=== PATIENT | female | born 1960 | race Caucasian/White ===

== ENCOUNTER 2018-02-02 16:55 | Observation (INO) ==
[2018-02-02] MEDS ORDERED: ONDANSETRON 4 MG TAB.RAPDIS PO ONE (17:03)
[2018-02-02] MEDS ORDERED: ONDANSETRON 4 MG TAB.RAPDIS ONE (17:13)
[2018-02-02] MEDS ORDERED: DICYCLOMINE HCL 10 MG/ML AMPUL IM ONE ×2 (17:17→17:23)
[2018-02-02 17:20] LABS: Hematocrit 45.7 % (37.0-47.0); Hemoglobin 15.3 gm/dL (12.5-16.0); Mean Cell Volume 97.9 fl (78-100); Mean Corpuscular Hemoglobin 32.8 pg (27-31); Mean Corpuscular Hgb Conc 33.5 g/dl (32-36); Mean Platelet Volume 9.5 fl (8-12.5); Neutrophil # 11.1 K/mm3 (1.3-6.0); Neutrophil % 80.6 % (42-75.0); Platelet Count 284 K/mm3 (150-450); Red Blood Count 4.67 M/mm3 (4.2-5.4); Red Cell Distribution Width 14.2 % (11.5-14.0); White Blood Count 13.8 K/mm3 (4.0-10.5)
[2018-02-02 17:23] LABS: Urine Bilirubin 1 mg/dl (NEGATIVE); Urine Ketone Negative (NEGATIVE); Urine Nitrite Negative (NEGATIVE); Urine Protein 30 mg/dL (NEGATIVE); Urine Urobilinogen Normal (NORMAL)
--- NOTE | 2018-02-02 17:23 | ERNOTE ---
Abdominal HPI - Narrative Date of Service: 02/02/18 - General Chief Complaint: Abdominal Pain Time Seen by Provider: 02/02/18 17:03 Source: patient Exam Limitations: no limitations - Immun/Allergies/Home Medications Immunizatons: IMMUNIZATION HX Immunizations Up to Date Yes History of Influenza Vaccine Yes Hx Pneumococcal Vaccination No Allergies/Adverse Reactions: Allergies Penicillins Allergy (Mild, Verified 02/02/18 17:02) Hives amoxicillin Adverse Reaction (Verified 02/02/18 17:02) rash Home Medications: HOME MEDICATIONS Folic Acid 1 mg PO DAILY 10/07/15 [Last Taken 10/25/15 07:30] Metoprolol Tartrate [Lopressor] 50 mg PO BID 10/07/15 [Last Taken 10/26/15 07:00 ] Multivitamins [Multivitamin Nathalia] 1 cap PO DAILY 10/07/15 [Last Taken 07:30] Ranitidine HCl [Zantac 75] 150 mg PO DAILY 10/07/15 [Last Taken 10/25/15 07:30] Aspirin [Aspirin EC] 325 mg PO DAILY 12/19/17 [Last Taken Unknown] Methotrexate Sodium [Methotrexate] 15 mg PO ONCE 12/19/17 [Last Taken Unknown] - History of Present Illness Narrative: Pt. comes in by PV with C/O R upper and lower quadrant abdominal pain for three days. Pt. states that the pain does not move, is constant and is accompanied by NVD. Pt. states that the was able to tolerate cereal this morning without difficulty. Pt. denies any CP, SOB, dysuria, back pain, fevers, alleviating factors or prehospital treatment. Pt. does state that movement, deep breathing , and ambulating make the symptoms worse. Timing: getting worse Quality: moderate, sharpness Activities at Onset: none Modifying Factors - (Improves): Present: other - nothing Modifying Factors - (Worsens): Present: breathing, movement Associated Symptoms: Present: diarrhea-mucous, nausea, vomiting. Absent: chest pain, neck pain, diarrhea-gross blood, fatigue, heartburn, loss of appetite, shortness of breath, swelling/mass in abdomen, weakness Prior Abdominal Problems: Present: none Prior Treatment: Absent: recently seen, treated by physician, recently hospitalized, currently on antibiotics Review of Systems - Review of Systems Constitutional: Present: no symptoms reported. Absent: fever, chills, weakness , fatigue, malaise EYE: Present: no symptoms reported ENT: Present: no symptoms reported Respiratory: Present: no symptoms reported. Absent: shortness of breath, cough , wheezing Cardiology: Present: no symptoms reported. Absent: chest pain, palpitations, edema Gastrointestinal/Abdominal: Present: nausea, vomiting, diarrhea, abdominal pain - RUQ, RLQ Genitourinary: Present: no symptoms reported. Absent: frequency, decreased urinary output Musculoskeletal: Present: no symptoms reported. Absent: back pain, neck pain, joint pain Skin: Present: no symptoms reported. Absent: rash, change in color Neurological: Present: no symptoms reported. Absent: headache, dizziness/light- headedness, numbness, tingling Endocrine: Present: no symptoms reported All Other Systems: All systems neg except as marked - Patient's Past Medical History Patient History - Medical: No pertinent hx Patient History - Cardiac/Respiratory: Hypertension Patient History - Cancer: No Hx of Cancer Patient History - Surgical Procedures: Cholecystectomy, Hysterectomy, Total Knee Replacement, T & A, Urology Patient History - Other: None - Family History Father Family History - Medical: , Renal Failure Family History - Cardiac/Respiratory: Coronary Heart Disease, Hypertension, Myocardial Infarction Mother Family History - Medical: , Diabetes Type 2 Family History - Cardiac/Respiratory: Coronary Heart Disease, CVA/Stroke - Social History Living Situations: home Abuse History: No History of abuse Psych History: No pertinent hx - Immunizations Immunizations Up to Date: Yes Hx Pneumococcal Vaccination: No History of Influenza Vaccine: Yes Physical Exam - Physical Exam General Appearance: Present: wd/wn, alert, no apparent distress Head Exam: Present: normal inspection, no evidence of injury, no tenderness w palpation Eye Exam: Normal inspection: bilateral Ears, Nose, Throat: Present: normal ENT inspection, normal pharynx Neck: Present: normal inspection, nontender, supple, full range of motion. Absent: lymphadenopathy (R), lymphadenopathy (L) Respiratory: Present: no respiratory distress, normal breath sounds, no accessory muscle use, chest nontender, lungs clear Cardiovascular/Chest: Present: regular rate, rhythm, no murmur, normal peripheral pulses Gastrointestinal/Abdominal: Present: normal bowel sounds, nondistended, soft, no organomegaly, tenderness - R flank, RLQ Back Exam: Present: normal inspection, normal range of motion, no CVA tenderness , no vertebral tenderness Extremity Exam: Present: normal inspection, non-tender, normal range of motion, no edema Neurological Exam: Present: alert, oriented, normal mood/affect, no motor/ sensory deficits Skin Exam: Present: normal color, warm/dry. Absent: pallor, skin rash ED Progress - Date and Time Seen: Date and Time: 02/02/18 21:[address] Saldana and he will be in to perform appendectomy - Results and Orders Patient's Lab Results:: I have reviewed the patient's lab results. Results and Orders: Laboratory Results - last 24 hr 02/02/18 02/02/18 02/02/18 17:19 17:19 17:19 WBC 13.8 H RBC 4.67 Hgb 15.3 Hct 45.7 MCV 97.9 MCH 32.8 H MCHC 33.5 RDW 14.2 H Plt Count 284 MPV 9.5 Immature Gran % (Auto) 0.80 H Immature Gran # (Auto) 0.11 H Neutrophils % 80.6 H Lymphocytes % 9.6 L Monocytes % 7.8 Eosinophils % 0.8 Basophils % 0.4 Nucleated RBC % 0.0 Neutrophils # 11.1 H Lymphocytes # 1.32 L Monocytes # 1.1 H Eosinophils # 0.1 Absolute Basophils 0.1 ESR Sodium 137 Plasma Sodium 137 Potassium 3.7 Chloride 103 Carbon Dioxide 25.1 Anion Gap 12.6 BUN 11 Creatinine 0.68 Est GFR (Non-Af Amer) 94 BUN/Creatinine Ratio 16.2 Random Glucose 128 H Calcium 9.9 Calcium Adj for Albumin 9.9 Total Bilirubin 1.1 AST 17 ALT 26 Alkaline Phosphatase 132 C-Reactive Prot, Quant Total Protein 7.8 Albumin 3.6 Amylase 33 Lipase 119 Urine Color Yellow Urine Appearance Clear Urine pH 6.0 Ur Specific [place] 1.020 Urine Protein 30 H Urine Glucose (UA) Negative Urine Ketones Negative Urine Blood 5 H Urine Nitrate Negative Urine Bilirubin 1 H Urine Ictotest Negative Prot Sulfosalicylic Acd Negative Urine Urobilinogen Normal Ur Leukocyte Esterase 25 H Urine RBC Trace Urine WBC 0-5 Ur Epithelial Cells 0-5 Urine Bacteria Trace Urine Culture Comments Culture to follow 02/02/18 02/02/18 17:19 17:19 WBC RBC Hgb Hct MCV MCH MCHC RDW Plt Count MPV Immature Gran % (Auto) Immature Gran # (Auto) Neutrophils % Lymphocytes % Monocytes % Eosinophils % Basophils % Nucleated RBC % Neutrophils # Lymphocytes # Monocytes # Eosinophils # Absolute Basophils ESR 71 H Sodium Plasma Sodium Potassium Chloride Carbon Dioxide Anion Gap BUN Creatinine Est GFR (Non-Af Amer) BUN/Creatinine Ratio Random Glucose Calcium Calcium Adj for Albumin Total Bilirubin AST ALT Alkaline Phosphatase C-Reactive Prot, Quant 19.1 H Total Protein Albumin Amylase Lipase Urine Color Urine Appearance Urine pH Ur Specific [place] Urine Protein Urine Glucose (UA) Urine Ketones Urine Blood Urine Nitrate Urine Bilirubin Urine Ictotest Prot Sulfosalicylic Acd Urine Urobilinogen Ur Leukocyte Esterase Urine RBC Urine WBC Ur Epithelial Cells Urine Bacteria Urine Culture Comments - Vital Signs Patient's Vital Signs:: I have reviewed the patient's vital signs. Vital Signs: Vital Signs 02/02/18 16:58 Temperature 36.6 C Pulse Rate 87 Respiratory 12 Rate Blood Pressure 160/95 O2 Sat by Pulse 97 Oximetry - CT/Ultrasound CT/Ultrasound Narrative: CT significant for acute appendicitis. - Progress/Reassessment Chief Complaint: Abdominal Pain Departure Clinical Impression: Appendicitis Qualifiers: Appendicitis type: acute appendicitis Acute appendicitis type: with localized peritonitis Qualified Code(s): K35.3 - Acute appendicitis with localized peritonitis - Departure Disposition: Still a patient Condition: Fair Referrals: Lashawn Giron MD [Primary Care Provider] -
[2018-02-02 17:29] LABS: Urine Appearance Clear (CLEAR); Urine Bacteria TRACE; Urine Blood 5 /ul (NEGATIVE); Urine Color Yellow; Urine RBC TRACE /hpf (0-5); Urine WBC 0-5 /hpf (0-5)
[2018-02-02 17:38] LABS: Albumin * 3.6 gm/dl (3.4-5.0); Anion Gap 12.6 mmol/L (6.8-13.8); BUN/Creatinine Ratio 16.2 (9.0-21.6); Bilirubin, Total 1.1 mg/dL (0.0-1.1); Ca. Corrected For Albumin 9.9 mg/dL (8.4-10.2); Calcium * 9.9 mg/dL (7.9-10.9); Carbon Dioxide 25.1 mmol/L (24-32.6); Potassium 3.7 mmol/L (3.4-4.6); Total Protein 7.8 gm/dL (6.2-8.2)
[2018-02-02] MEDS ORDERED: DIATRIZOATE MEGLUMINE, SODIUM 30 ML BTL PO ONE (17:48)
[2018-02-02] MEDS ORDERED: DIATRIZOATE MEGLUMINE, SODIUM 30 ML BTL ONE (17:50)
--- NOTE | 2018-02-02 21:35 | HP ---
Chief Complaint - Chief Complaint Date of Service: 02/02/18 Time of Service: 21:26 Chief Complaint: abdominal pain History of Present Illness: Started with right side pain at night 01/30/18. Had headache and some chills. Vomiting over the next day with loose stools. Pain has continued. CT in ER shows acute appendicitis. - Patient's Past Medical History Patient History - Medical: No pertinent hx Patient History - Cardiac/Respiratory: Hypertension Patient History - Cancer: No Hx of Cancer Patient History - Surgical Procedures: Cholecystectomy, Hysterectomy, Total Knee Replacement, T & A, Urology Patient History - Other: None - Family History Father Family History - Medical: , Renal Failure Family History - Cardiac/Respiratory: Coronary Heart Disease, Hypertension, Myocardial Infarction Mother Family History - Medical: , Diabetes Type 2 Family History - Cardiac/Respiratory: Coronary Heart Disease, CVA/Stroke - Social History Living Situations: home Abuse History: No History of abuse Psych History: No pertinent hx - Immunizations Immunizations Up to Date: Yes Hx Pneumococcal Vaccination: No History of Influenza Vaccine: Yes Review Of Systems (GEN) - Review of Systems Generalized/Overall Review: Present: Malaise EENTM: Present: No Symptoms Reported Respiratory: Present: No Symptoms Reported Cardiac: Present: No Symptoms Reported Abdominal: Present: Other - right sided pain worse with movement Genitourinary: Present: Oliguria Musculoskeletal: Present: Other - numbness lateral to right knee incision Neurological: Present: No Symptoms Reported Skin: Present: No Symptoms Reported Immunizations: IMMUNIZATION HX Immunizations Up to Date Yes History of Influenza Vaccine Yes Hx Pneumococcal Vaccination No Allergies/Adverse Reactions: Allergies Allergy/AdvReac Type Severity Reaction Status Date / Time Penicillins Allergy Mild Hives Verified 02/02/18 17:02 amoxicillin AdvReac rash Verified 02/02/18 17:02 Home Medications: HOME MEDICATIONS Folic Acid 1 mg PO DAILY 10/07/15 [Last Taken 10/25/15 07:30] Metoprolol Tartrate [Lopressor] 50 mg PO BID 10/07/15 [Last Taken 10/26/15 07:00 ] Multivitamins [Multivitamin Nathalia] 1 cap PO DAILY 10/07/15 [Last Taken 07:30] Ranitidine HCl [Zantac 75] 150 mg PO DAILY 10/07/15 [Last Taken 10/25/15 07:30] Aspirin [Aspirin EC] 325 mg PO DAILY 12/19/17 [Last Taken Unknown] Methotrexate Sodium [Methotrexate] 15 mg PO ONCE 12/19/17 [Last Taken Unknown] Exam - Exam Vital Signs: Vital Signs - Last Taken Temp 36.6 C 02/02/18 16:58 Pulse 69 02/02/18 18:57 Resp 15 02/02/18 18:57 BP 154/65 02/02/18 18:57 Pulse Ox 97 02/02/18 18:57 Constitutional: Present: Alert, Oriented x3, Cooperative, Well developed, Well nourished, Mild distress ENT Exam: Present: normal ENT inspection, other - Malampati 4 airway Eye Exam: bilateral eye: normal inspection Neck: Present: full range of motion, normal inspection Breasts: Present: Exam deferred Respiratory: Present: lungs clear, normal breath sounds, no respiratory distress Cardiovascular/Chest: Present: regular rate, rhythm, no edema Abdomen: Present: other - obese, tender Rt side /Rectal: Present: Exam deferred Extremity: Present: no pedal edema, no calf tenderness, other - varicosities Neurologic: Present: 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, normal cerebellar test, no motor/ sensory deficits Appearance: Present: appropriate appearance, appropriate insight, neat Eye contact: Present: cooperative, good eye contact, normal speech Thoughts: Present: normal thought pattern Diagnostic Studies: Abnormal Lab Results 02/02/18 02/02/18 02/02/18 Range/Units 17:19 17:19 17:19 WBC 13.8 H (4.0-10.5) K/mm3 MCH 32.8 H (27-31) pg RDW 14.2 H (11.5-14.0) % Immature Gran % (Auto) 0.80 H (0.001-0.429) % Immature Gran # (Auto) 0.11 H (0.000-0.0310) K/mm3 Neutrophils % 80.6 H (42-75.0) % Lymphocytes % 9.6 L (20-51) % Neutrophils # 11.1 H (1.3-6.0) K/mm3 Lymphocytes # 1.32 L (1.5-3.5) k/mm3 Monocytes # 1.1 H (0.0-1.0) k/mm3 ESR (0-15) mm/hr Random Glucose 128 H (70-110) mg/dL C-Reactive Prot, Quant (0.0-0.9) mg/dL Urine Protein 30 H (NEGATIVE) mg/dL Urine Blood 5 H (NEGATIVE) /ul Urine Bilirubin 1 H (NEGATIVE) mg/dl Ur Leukocyte Esterase 25 H (NEGATIVE) /ul 18 02/02/18 Range/Units 17:19 17:19 WBC (4.0-10.5) K/mm3 MCH (27-31) pg RDW (11.5-14.0) % Immature Gran % (Auto) (0.001-0.429) % Immature Gran # (Auto) (0.000-0.0310) K/mm3 Neutrophils % (42-75.0) % Lymphocytes % (20-51) % Neutrophils # (1.3-6.0) K/mm3 Lymphocytes # (1.5-3.5) k/mm3 Monocytes # (0.0-1.0) k/mm3 ESR 71 H (0-15) mm/hr Random Glucose (70-110) mg/dL C-Reactive Prot, Quant 19.1 H (0.0-0.9) mg/dL Urine Protein (NEGATIVE) mg/dL Urine Blood (NEGATIVE) /ul Urine Bilirubin (NEGATIVE) mg/dl Ur Leukocyte Esterase (NEGATIVE) /ul Laboratory Results WBC 13.8 K/mm3 (4.0-10.5) H 02/02/18 17:19 RBC 4.67 M/mm3 (4.2-5.4) 02/02/18 17:19 Hgb 15.3 gm/dL (12.5-16.0) 02/02/18 17:19 Hct 45.7 % (37.0-47.0) 02/02/18 17:19 MCV 97.9 fl (78-100) 02/02/18 17:19 MCH 32.8 pg (27-31) H 02/02/18 17:19 MCHC 33.5 g/dl (32-36) 02/02/18 17:19 RDW 14.2 % (11.5-14.0) H 02/02/18 17:19 Plt Count 284 K/mm3 (150-450) 02/02/18 17:19 MPV 9.5 fl (8-12.5) 02/02/18 17:19 Immature Gran % (Auto) 0.80 % (0.001-0.429) H 02/02/18 17:19 Immature Gran # (Auto) 0.11 K/mm3 (0.000-0.0310) H 02/02/18 17:19 Neutrophils % 80.6 % (42-75.0) H 02/02/18 17:19 Lymphocytes % 9.6 % (20-51) L 02/02/18 17:19 Monocytes % 7.8 % (0.0-9) 02/02/18 17:19 Eosinophils % 0.8 % (0.0-3.0) 02/02/18 17:19 Basophils % 0.4 % (0.0-1.0) 02/02/18 17:19 Nucleated RBC % 0.0 k/mm3 (0-1) 02/02/18 17:19 Neutrophils # 11.1 K/mm3 (1.3-6.0) H 02/02/18 17:19 Lymphocytes # 1.32 k/mm3 (1.5-3.5) L 02/02/18 17:19 Monocytes # 1.1 k/mm3 (0.0-1.0) H 02/02/18 17:19 Eosinophils # 0.1 k/mm3 (0.0-0.7) 02/02/18 17:19 Absolute Basophils 0.1 k/mm3 (0.0-0.1) 02/02/18 17:19 ESR 71 mm/hr (0-15) H 02/02/18 17:19 Sodium 137 mmol/L (132-142) 02/02/18 17:19 Plasma Sodium 137 mmol/L (130-142) 02/02/18 17:19 Potassium 3.7 mmol/L (3.4-4.6) 02/02/18 17:19 Chloride 103 mmol/L (97-106) 02/02/18 17:19 Carbon Dioxide 25.1 mmol/L (24-32.6) 02/02/18 17:19 Anion Gap 12.6 mmol/L (6.8-13.8) 02/02/18 17:19 BUN 11 mg/dL (3-23) 02/02/18 17:19 Creatinine 0.68 mg/dL (0.4-1.4) 02/02/18 17:19 Est GFR (Non-Af Amer) 94 mL/min (60-130) 02/02/18 17:19 BUN/Creatinine Ratio 16.2 (9.0-21.6) 02/02/18 17:19 Random Glucose 128 mg/dL (70-110) H 02/02/18 17:19 Calcium 9.9 mg/dL (7.9-10.9) 02/02/18 17:19 Calcium Adj for Albumin 9.9 mg/dL (8.4-10.2) 02/02/18 17:19 Total Bilirubin 1.1 mg/dL (0.0-1.1) 02/02/18 17:19 AST 17 U/L (0-48) 02/02/18 17:19 ALT 26 U/L (19-67) 02/02/18 17:19 Alkaline Phosphatase 132 U/L (50-170) 02/02/18 17:19 C-Reactive Prot, Quant 19.1 mg/dL (0.0-0.9) H 02/02/18 17:19 Total Protein 7.8 gm/dL (6.2-8.2) 02/02/18 17:19 Albumin 3.6 gm/dl (3.4-5.0) 02/02/18 17:19 Amylase 33 U/L (25-115) 02/02/18 17:19 Lipase 119 U/L (73-393) 02/02/18 17:19 Urine Color Yellow 02/02/18 17:19 Urine Appearance Clear (CLEAR) 02/02/18 17:19 Urine pH 6.0 pH (5.0-7.0) 02/02/18 17:19 Ur Specific [place] 1.020 SP.GR. (1.005-1.010) 02/02/18 17:19 Urine Protein 30 mg/dL (NEGATIVE) H 02/02/18 17:19 Urine Glucose (UA) Negative mg/dL (NEGATIVE) 02/02/18 17:19 Urine Ketones Negative mg/dL (NEGATIVE) 02/02/18 17:19 Urine Blood 5 /ul (NEGATIVE) H 02/02/18 17:19 Urine Nitrate Negative (NEGATIVE) 02/02/18 17:19 Urine Bilirubin 1 mg/dl (NEGATIVE) H 02/02/18 17:19 Urine Ictotest Negative (NEGATIVE) 02/02/18 17:19 Prot Sulfosalicylic Acd Negative mg/dL (0) 02/02/18 17:19 Urine Urobilinogen Normal EU/dl (NORMAL) 02/02/18 17:19 Ur Leukocyte Esterase 25 /ul (NEGATIVE) H 02/02/18 17:19 Urine RBC Trace /hpf (0-5) 02/02/18 17:19 Urine WBC 0-5 /hpf (0-5) 02/02/18 17:19 Ur Epithelial Cells 0-5 /hpf (0-5) 02/02/18 17:19 Urine Bacteria Trace (NONE) 02/02/18 17:19 Urine Culture Comments Culture to follow 02/02/18 17:19 CT shows appendicitis Assessment/Plan - Assessment/Plan (1) Appendicitis Assessment: Discussed appendectomy (laparoscopic or open) risks and possible complications and expected hospital course. Questions answered and informed consent obtained for appendectomy SCD's, chlorhexidine wipes, IV Mefoxin, may be difficult intubation Problem: Acute Qualifiers: Appendicitis type: acute appendicitis Acute appendicitis type: with localized peritonitis Qualified Code(s): K35.3 - Acute appendicitis with localized peritonitis
[2018-02-02] MEDS ORDERED: CEFOXITIN SODIUM 2 GM in DEXTROSE 5 % IN WATER 100 ML IV ONE ×2 (21:37)
[2018-02-02] MEDS ORDERED: RINGER'S SOLUTION,LACTATED 1,000 ML IV ONE (22:25)
[2018-02-02] MEDS ORDERED: MUPIROCIN 22 APPL TUBE TP ONE (22:33)
[2018-02-02] MEDS ORDERED: BUPIVACAINE HCL/EPINEPHRINE 50 ML VIAL IJ ONE ×2 (22:33)
[2018-02-03] MEDS ORDERED: RINGER'S SOLUTION,LACTATED 1,000 ML IV PRN (00:23)
[2018-02-03] MEDS ORDERED: MORPHINE SULFATE 4 MG/ML SYRG IV PRN (00:23)
[2018-02-03] MEDS ORDERED: PANTOPRAZOLE SODIUM 40 MG in NORMAL SALINE 100 ML IV SCH (00:30)
[2018-02-03] MEDS: oxyCODONE HCL/ACETAMINOPHEN 1 TAB TABLET PO PRN ×4 (02:16→17:33)
[2018-02-03] MEDS: CEFOXITIN SODIUM 2 GM in DEXTROSE 5 % IN WATER 100 ML IV SCH ×4 (04:07→10:54)
--- NOTE | 2018-02-03 07:55 | OR ---
Operative Report - Dictated Report Narrative: Date of operation 02/02-05/15 Preoperative diagnosis: Acute appendicitis Postoperative diagnosis: Advanced acute appendicitis Operation: Laparoscopic appendectomy Surgeon: ABDON Saldana MD Anesthesia: Gen. erick Kinsey cRNA Indications for procedure: The patient is a 57-year-old female who began with right flank pain on 01/30/2018. She had some chills. Over the next 2 days she developed some nausea diarrhea and the pain continued. She has marked right sided abdominal tenderness with an elevated white blood cell count and CT scan demonstrates acute appendicitis Findings: Advanced acute appendicitis Narrative of procedure: The patient was identified preoperatively, and prior to the administration of anesthetic a multidisciplinary timeout was observed. The patient was placed supine, SCDs were applied, and 2 g of intravenous Mefoxin administered. General endotracheal anesthetic was administered. The patient's abdomen was prepped with Betadine solution, and a generous operating field outlined with 4 sterile towels. The remainder the patient was covered with a sterile disposable drape. A transverse infraumbilical skin incision was made in her previous incision, and dissection was carried along the umbilical stalk until the fascia of the linea alba was encountered. This was incised. The peritoneum was elevated and incised to allow entry into the abdomen under direct vision. A Hussan cannula was placed and the abdomen insufflated with CO2. The laparoscopic camera was introduced and the abdomen briefly explored. Those portions of the liver omentum and small bowel visualized appeared normal. The cecum was seen to be inflamed and adherent along the right lateral abdominal wall. Next under direct vision, 2 additional working ports were inserted through separate skin incisions, one in the suprapubic area one in the left lower quadrant. The cecum was liberated from the anterior abdominal wall by gradual blunt dissection. The confluence of tenia and ileocecal valve could be identified, however the appendix could not initially be identified. Exudate along the lateral surface of the cecum was gradually explored revealing the appendiceal base. The appendix was seen to closely applied to the lateral aspect of the cecum. Gradually the medial side of the appendix was liberated by blunt and hydro-cautery dissection. Inspection laterally revealed exudate which when opened revealed an inflamed appendiceal tip. Gradually the appendix was liberated on all margins until it could be elevated sufficient for removal. The appendiceal base and mesoappendix were then transected with a laparoscopic JEVON stapling device. The stump of the appendix was seen to be hemostatic and gas and liquid tight. The mesoappendix was seen to be hemostatic. The appendix was placed in an Endobag and parked in the right upper quadrant. The right lateral abdomen from pelvis to liver was then suctioned clean and hemostasis was assured. The small working ports were then withdrawn under direct vision to ensure entry site hemostasis. The appendix was removed in conjunction with the Hussan cannula. The pneumoperitoneum was allowed to escape, and after receiving a correct sponge needle and instrument count attention was turned to closing the abdomen. The fascia and peritoneum at the umbilicus were approximated with interrupted sutures of #1 Vicryl. The umbilical wound was irrigated with Betadine and saline. Subcutaneous space at the umbilicus was approximated with interrupted chromic sutures. Skin incisions were approximated with interrupted vertical mattress sutures of 4-0 nylon. The operative sites were washed and dried. Dressings of Bactroban ointment and large Band-Aids were applied to the small port sites. The umbilical incision was dressed with Bactroban ointment, 2 x 2, large Band-Aid, and Medipore tape. The operative procedure was terminated at this point. There was no measurable blood loss. 0.5% Marcaine with epinephrine was used for local anesthetic infiltration area the appendix was submitted to pathology. The patient tolerated the anesthetic and procedure well without complication and was transferred to the recovery room awake, extubated, and in stable condition. Reviewed and electronically signed
[2018-02-03] MEDS ORDERED: CEFOXITIN SODIUM 2 GM in DEXTROSE 5 % IN WATER 100 ML IV ONE ×2 (16:00)
--- NOTE | 2018-02-03 16:54 | DS ---
(1) Appendicitis Problem: Resolved Qualifiers: Appendicitis type: acute appendicitis Acute appendicitis type: with localized peritonitis Qualified Code(s): K35.3 - Acute appendicitis with localized peritonitis Description of Stay: She underwent a difficult but uncomplicated laparoscopic appendectomy for advanced acute appendicitis. Her hexedine wipes and IV Mefoxin were used pre- operatively and she was continued on IV Mefoxin. SCDs and early ambulation were used for DVT prophylaxis. Her presenting pain was improved and replaced with incisional discomfort. Her vital signs remained normal. She was able to tolerate a advanced diet and was up without assistance. Her dressings remained dry. She is discharged home on regular diet. Activity as tolerated with no lifting. She may shower on Monday night and change the dressings. She is not to lift over 15 pounds. Return office appointment for 1 week Description for Percocet 5/325 mg #30. Due to the severity of the inflammation Augmentin 875 mg by mouth twice a day 5 days. Procedures Performed: see notes below - laparoscopic appendectomy Discharge Location: Home Disposition: Home self-care Condition: Good Discharge Activity: Activity as tolerated, No Lifting Discharge Diet: General/regular food Problem Oriented Discharge Instructions to Patient/Family: Laparoscopic Appendectomy, Adult Additional Patient Instructions (free text): Call [phone] on Monday for a 1 week follow-up appointment 02/09/2018 Prescriptions (Any new or edited meds): Amox Tr/Potassium Clavulanate [Augmentin 875-125 Tablet] 875 mg PO Q12H #10 tab oxyCODONE HCL/ACETAMINOPHEN [Percocet 5 MG/325 MG] 1 tab PO Q4H PRN #30 tablet PRN Reason: Moderate Pain (Pain Scale 4-6) Complete Home Medications List: Complete Home Medication List: Folic Acid 1 mg PO DAILY 10/07/15 Metoprolol Tartrate [Lopressor] 50 mg PO BID 10/07/15 Multivitamins [Multivitamin Nathalia] 1 cap PO DAILY 10/07/15 Ranitidine HCl [Zantac 75] 150 mg PO DAILY 10/07/15 Aspirin [Aspirin EC] 325 mg PO DAILY 12/19/17 Methotrexate Sodium [Methotrexate] 15 mg PO Q7D 12/19/17 Amox Tr/Potassium Clavulanate [Augmentin 875-125 Tablet] 875 mg PO Q12H #10 tab 02/03/18 oxyCODONE HCL/ACETAMINOPHEN [Percocet 5 MG/325 MG] 1 tab PO Q4H PRN #30 tablet 02/03/18
[2018-02-03 17:21] VITALS: BP 136/62
== END 2018-02-03 18:00 | disposition home or self-care (01) ==
LOC: ER 16:55 → AMB 21:08 → INTOOBSV 02-03 00:03 → MS 02-03 00:03
PROVIDERS: ADMIT Surgery; ATTEND Surgery
DX: K35.3 Acute appendicitis with localized peritonitis; I10 Essential (primary) hypertension
CPT/HCPCS: 36415; 74019; 74020; 74177; 80053; 81001; 82150; 83690; 85025; 85652; 86140; 87086; 88304; 96365; 96366; 96367; 96372; 99284; G0378